=== PATIENT | male | born 1950 | race Caucasian/White ===

== ENCOUNTER 2023-09-09 10:07 | Emergency (ER) | payer MEDICARE, BC ==
[~2023-09-09] VITALS: Ht 185.4 cm; Wt 99.8 kg
[2023-09-09 10:17] VITALS: O2SAT 96
[2023-09-09] MEDS ORDERED: PRED50TA PO (10:44)
[2023-09-09] MEDS ORDERED: AMOX-430 PO (10:44)
== END 2023-09-09 11:00 | disposition home or self-care (01) ==
LOC: ER 10:22
DX: H66.91 Otitis media, unspecified, right ear (principal); Z79.899 Other long term (current) drug therapy; Z60.2 Problems related to living alone
CPT/HCPCS: A4606; A4663